=== PATIENT | male | born 1995 | race Caucasian/White ===

== ENCOUNTER → 2017-05-20 | Outpatient (CLI) | payer OTHER ==
[~2017-05-20] MED LIST: CONRAY-43 43% 50ML VIAL (Q9960) As Ordered ONE; LIDOCAINE 1% MDV 20ML VIAL As Ordered ONE; TRIAMCINOLONE ACETONIDE SUSP 40 MG/ML VIAL (J3301) As Ordered ONE
--- NOTE | 2017-05-20 18:06 | REP ---
RIGHT HIP ARTHROGRAM: The procedure was performed by EUGENIO Hightower under the direct supervision of Dr. Good. The procedure along with its risks, benefits and complications were discussed with the patient prior to the examination. Informed consent was obtained both verbally and written. The right femoral neck was localized using fluoroscopic guidance. The skin was marked, prepped and draped in the usual sterile fashion. 1% Lidocaine was used for a local infiltrative anesthesia. Under fluoroscopic guidance a 22-gauge spinal needle was inserted and advanced to the femoral neck. 0.5 mL of Conray 60 was injected to verify placement. 10 mL of a solution containing 9 mL of 1% lidocaine and 1 mL of Kenalog 40 were injected into the joint space. The needle was then removed. The patient tolerated the procedure well and had no immediate complications. Fluoroscopy time: 0.9 seconds. Reviewed by EUGENIO Huber 05/20/2017 06:45 PEdited and Signed by Vickey Good MD 05/21/2017 04:59 P
== END ==
LOC: M RADPRO 10:16
PROVIDERS: ATTEND Orthopaedic Surgery
DX: M24.151 Other articular cartilage disorders, right hip (principal)
CPT/HCPCS: 20610; 77002; J3301; Q9960